=== PATIENT | male | born 2000 | race Asian ===

== ENCOUNTER → 2021-11-06 09:54 | Outpatient (CLI) | payer OTHER, SELFPAY ==
--- NOTE | ~2021-11-06 | MR_ITS ---
EXAMINATION: MR knee RT wo con DATE: 11/06/2021 10:32 INDICATION: Right knee pain TECHNIQUE: Magnetic resonance imaging (MRI) of the right knee was performed without intravenous contr ast. Sequences included axial PD-weighted FS FSE, coronal PD-weighted FSE and PD-weighted FS FSE, sag ittal PD-weighted FSE, and sagittal T2-weighted FS FSE. COMPARISON: None. FINDINGS: Medial compartment: Meniscus intact. Mild diffuse cartilage thinning. Lateral compartment: Meniscus intact. Mild diffuse cartilage thinning. Patellofemoral compartment: Mild diffuse cartilage thinning. Retinacula intact. Ligaments and tendons: ACL, PCL, MCL, and LCL are intact. Flexor and extensor tendons are intact. Fluid: No significant joint effusion. Minimal volume fluid in the retropatellar bursa. Osseous/other: No concerning focal or diffuse marrow signal. IMPRESSION: 1. Mild tricompartmental cartilage thinning. 2. Possible retropatellar bursitis. 3. No internal derangement. Reviewed, dictated and finalized at location K.
== END ==
DX: M25.561 Pain in right knee (principal)
CPT/HCPCS: 73721